=== PATIENT | female | born 1995 | race Caucasian/White ===

== ENCOUNTER 2020-11-22 17:40 | Observation (INO) | payer MEDICAID, OTHER ==
[2020-11-22] MEDS ORDERED: Sodium Chloride 0.9% 1,000 ML IV ONE (17:42)
[2020-11-22] MEDS ORDERED: Ondansetron 4 MG/2 ML SDV IVPUSH PRN ×2 (17:43→20:05)
[2020-11-22 18:08] LABS: CHLORIDE,CL 102 mEq/L (98-106); SODIUM,NA 138 mEq/L (136-145)
--- NOTE | 2020-11-22 18:13 | EDM.PDOC ---
ED HPI GENERAL MEDICAL PROBLEM - General Chief Complaint: General Stated Complaint: nausea Time Seen by Provider: 11/22/20 17:55 Source of Information: Reports: Patient History Limitations: Reports: No Limitations - History of Present Illness INITIAL COMMENTS - FREE TEXT/NARRATIVE: This is 19 week pg Mom with twins who has been vomiting for several hours. She did call her OB in [place] and they told her to go to ER for eval to prevent dehydration. She states the daycare that her daughter attends has flu. She has vomited once since being here and has had 1 diarrhea stool since being here. She states that she has not been able to keep anything down all day although she does continue to sip on gatorade to try. No fever with it. Onset: Today Location: Reports: Abdomen Associated Symptoms: Reports: Nausea/Vomiting - Related Data Allergies Allergy/AdvReac Type Severity Reaction Status Date / Time amoxicillin Allergy Rash Verified 11/22/20 18:04 azithromycin [From Zithromax] Allergy Edema Verified 11/22/20 18:04 Home Meds: Home Meds Aspirin [Aspirin EC] 81 mg PO DAILY 11/22/20 [History] Vits #93/Iron Fum/FA [ Formula Tablet] 1 tab PO DAILY 11/22/20 [History] Past Medical History - Past Health History Medical/Surgical History: Denies Medical/Surgical History - Past Surgical History HEENT Surgical History: Reports: Tonsillectomy GI Surgical History: Reports: Cholecystectomy Female Surgical History: Reports: Breast Reduction Social & Family History - Tobacco Use Tobacco Use Status *Q: Never Tobacco User ED ROS GENERAL - Review of Systems Review Of Systems: See Below Constitutional: Denies: Fever, Chills HEENT: Reports: No Symptoms Respiratory: Reports: No Symptoms Cardiovascular: Reports: No Symptoms GI/Abdominal: Reports: Diarrhea, Nausea, Vomiting. Denies: Abdominal Pain : Reports: No Symptoms ED EXAM, GENERAL - Physical Exam Exam: See Below Exam Limited By: No Limitations General Appearance: Alert, WD/WN, Mild Distress Respiratory/Chest: No Respiratory Distress, Lungs Clear, Normal Breath Sounds Cardiovascular: Normal Peripheral Pulses, Regular Rate, Rhythm, No Edema GI/Abdominal: Normal Bowel Sounds, Soft, Other (Gravid abdomen. baby heart rate on the rate is 155, baby heart rate on the left is 147. movement is felt by Mom.) Extremities: No Pedal Edema Neurological: Alert, Oriented Skin Exam: Warm Course - Vital Signs Last Recorded V/S: Last Vital Signs Temp 98 F 11/22/20 18:23 Pulse 115 H 11/22/20 18:23 Resp 18 11/22/20 18:23 BP 108/66 11/22/20 18:23 Pulse Ox 99 11/22/20 18:23 - Orders/Labs/Meds Orders: Active Orders 24 hr Category Date Time Status Ondansetron [Zofran] Med 11/22/20 17:43 Active 4 mg IVPUSH Q6H PRN Ondansetron [Zofran] Med 11/22/20 20:05 Ordered 4 mg IVPUSH Q6H PRN Sodium Chloride 0.9% [Normal Saline] 1,000 ml Med 11/22/20 19:15 Active IV ASDIRECTED Medication Orders Sodium Chloride (Normal Saline) 1,000 mls @ 999 mls/hr IV ASDIRECTED RAFAEL Stop: 11/26/20 19:04 Last Admin: 11/22/20 19:15 Dose: 999 mls/hr Documented by: JAY Ondansetron HCl (Ondansetron 4 Mg/2 Ml Sdv) 4 mg IVPUSH Q6H PRN PRN Reason: Nausea/Vomiting Last Admin: 11/22/20 18:02 Dose: 4 mg Documented by: GOLD Labs: Laboratory Tests 11/22/20 11/22/20 11/22/20 Range/Units 17:58 17:58 18:05 WBC 19.4 H (5.0-10.0) 10^3/uL RBC 4.16 (4.00-5.50) 10^6/uL Hgb 12.6 (12.0-16.0) g/dL Hct 37.1 (37.0-47.0) % MCV 89.2 (82.0-94.0) fL MCH 30.3 (27.0-32.0) pg MCHC 34.0 (33.0-38.0) g/dL RDW Coeff of Estuardo 13.6 (11.0-15.0) % Plt Count 265 (150-400) 10^3/uL Add Manual Diff Yes Neutrophils % (Manual) 82 (35-85) % Lymphocytes % (Manual) 11 L (21-55) % Monocytes % (Manual) 7 (2-12) % Absolute Neutrophils 15.91 H (1.80-7.00) 10^3/uL Lymphocytes # (Manual) 2.13 (1.00-4.80) 10^3/uL Monocytes # (Manual) 1.36 H (0.00-0.80) 10^3/uL Sodium 138 (136-145) mEq/L Potassium 3.7 (3.5-5.0) mEq/L Chloride 102 (98-106) mEq/L Carbon Dioxide 24 (21-32) mmol/L BUN 14 (7-18) mg/dL Creatinine 0.7 (0.6-1.0) mg/dL Est Cr Clr Drug Dosing TNP Estimated GFR (MDRD) > 60 (>=60) mL/min Glucose 108 H (75-99) mg/dL Calcium 9.3 (8.4-10.1) mg/dL Urine Color Yellow (YELLOW) Urine Appearance Slightly cloudy (CLEAR) Urine pH 5.5 (4.5-8.0) Ur Specific Roann >= 1.030 H (1.003-1.020) Urine Protein 100 H (NEGATIVE) mg/dL Urine Glucose (UA) Negative (NEGATIVE) mg/dL Urine Ketones Trace H (NEGATIVE) mg/dL Urine Occult Blood Trace-intact H (NEGATIVE) Urine Nitrite Negative (NEGATIVE) Urine Bilirubin Negative (NEGATIVE) Urine Urobilinogen 0.2 (0.2-1.0) EU/dL Ur Leukocyte Esterase Small H (NEGATIVE) U Hyaline Cast (Auto) Credit Collections Analyst Urine RBC 0-5 (0-5) /HPF Urine WBC 5-10 H (0-5) /HPF Ur Squamous Epith Cells Many H (NOT SEEN) /HPF Urine Bacteria Moderate H (NOT SEEN) /HPF Urinalysis Comment Meds: Medications Generic Name Dose Route Start Last Admin Trade Name Freq PRN Reason Stop Dose Admin Sodium Chloride 1,000 mls @ 999 mls/hr 11/22/20 19:15 11/22/20 19:15 Normal Saline IV 11/26/20 19:04 999 mls/hr ASDIRECTED RAFAEL Administration Ondansetron HCl 4 mg 11/22/20 17:43 11/22/20 18:02 Ondansetron 4 Mg/2 Ml Sdv IVPUSH 4 mg Q6H PRN Administration Nausea/Vomiting Discontinued Medications Generic Name Dose Route Start Last Admin Trade Name Jf PRN Reason Stop Dose Admin Sodium Chloride 1,000 mls @ 999 mls/hr 11/22/20 17:42 11/22/20 18:02 Normal Saline IV 11/22/20 18:42 999 mls/hr .BOLUS ONE Administration Ondansetron HCl 2 packet 11/22/20 18:44 11/22/20 19:04 Take Home: Ondansetron 4 Mg Tab.Dis, 2 Tab Pack PO 11/22/20 18:45 Not Given ONETIME ONE Ondansetron HCl 4 mg 11/22/20 20:05 Ondansetron 4 Mg/2 Ml Sdv IVPUSH 11/22/20 20:06 Q6H ONE - Re-Assessments/Exams Free Text/Narrative Re-Assessment/Exam: 11/22/20 18:30 She states that she is less nauseated after the zofran was given about 30 minutes ago. IV fluids are infusing as her spec grav is >1030 on arrival. Encouraged to sip on ice water or ice cubes. 11/22/20 19:40 Has not urinated at this time and has had 1 liter of fluids. Will give 2nd liter to ensure that she is hydrated before discharge. Departure - Departure Time of Disposition: 20:07 Disposition: Refer to Observation Condition: Good Clinical Impression: Gastroenteritis Qualifiers: Weeks of gestation: 19 weeks Qualified Code(s): Z3A.19 - 19 weeks gestation of Clinical Impression: (Ruled Out): greater than 20 weeks gestation - Discharge Information *PRESCRIPTION DRUG MONITORING PROGRAM REVIEWED*: Not Applicable *COPY OF PRESCRIPTION DRUG MONITORING REPORT IN PATIENT ROXANA: Not Applicable Referrals: PCP,Unknown [Primary Care Provider] - Forms: ED Department Discharge Sepsis Event Note (ED) - Focused Exam Vital Signs: Vital Signs Temp Pulse Resp BP Pulse Ox 11/22/20 18:23 98 F 115 H 18 108/66 99 - Problem List & Annotations (1) Gastroenteritis SNOMED Code(s): 64658110 Code(s): K52.9 - NONINFECTIVE GASTROENTERITIS AND COLITIS, UNSPECIFIED Status: Acute Priority: High Current Visit: Yes (2) SNOMED Code(s): 38516303 Code(s): Z34.90 - ENCNTR FOR SUPRVSN OF NORMAL , UNSP, UNSP TRIMESTER Status: Acute Priority: High Current Visit: Yes Qualifiers: Weeks of gestation: 19 weeks Qualified Code(s): Z3A.19 - 19 weeks gestation of - Problem List Review Problem List Initiated/Reviewed/Updated: Yes - My Orders Last 24 Hours: My Active Orders 11/22/20 17:43 Ondansetron [Zofran] 4 mg IVPUSH Q6H PRN 11/22/20 19:15 Sodium Chloride 0.9% [Normal Saline] 1,000 ml IV ASDIRECTED 11/22/20 20:05 Ondansetron [Zofran] 4 mg IVPUSH Q6H PRN - Assessment/Plan Admission H&P: Please use this note as an admission H&P Last 24 Hours: My Active Orders 11/22/20 17:43 Ondansetron [Zofran] 4 mg IVPUSH Q6H PRN 11/22/20 19:15 Sodium Chloride 0.9% [Normal Saline] 1,000 ml IV ASDIRECTED 11/22/20 20:05 Ondansetron [Zofran] 4 mg IVPUSH Q6H PRN Plan: Pt continues to vomit 2 hours after her zofran. Has not been able to take in much for fluids other than a few sips. No further diarrhea at the time of admission. Will admit to observation with fluids and nausea control. She has urinated once since being here.
[2020-11-22] MEDS ORDERED: Take Home: Ondansetron 4 MG Tab.DIS, 2 Tab Pack PO ONE (18:44)
[2020-11-22] MEDS ORDERED: Sodium Chloride 0.9% 1,000 ML IV SCH (19:15)
[2020-11-22] MEDS ORDERED: Ondansetron 4 MG/2 ML SDV IVPUSH ONE (20:05)
[2020-11-22] MEDS ORDERED: Acetaminophen 325 MG Tab PO PRN (20:35)
[2020-11-22] MEDS ORDERED: Prochlorperazine 10 MG Tab PO PRN (21:06)
[2020-11-22] MEDS ORDERED: Metoclopramide 10 MG/2 ML SDV IVPUSH PRN (21:10)
[2020-11-22] MEDS ORDERED: diphenhydrAMINE 50 MG/ML SDV IVPUSH PRN (21:11)
[2020-11-22] MEDS: Sodium Chloride 0.9% 1,000 ML IV SCH (21:30)
[2020-11-23] MEDS: Sodium Chloride 0.9% 1,000 ML IV SCH ×3 (03:55→06:01)
[2020-11-23 07:30] LABS: CHLORIDE,CL 109 mEq/L (98-106); SODIUM,NA 139 mEq/L (136-145)
[2020-11-23] MEDS ORDERED: Aspirin 81 MG Tab.EC PO SCH (08:00)
[2020-11-23] MEDS ORDERED: Non-Formulary Medication 1 Each (Prenatal Vits #93/Iron Fum/Fa [Prenatal Formula Tablet] 1 PO SCH (08:00)
[2020-11-23] MEDS ORDERED: Magnesium Sulfate (4.06 MEQ/ML) 1 GM/2 ML SDV IM ONE (09:18)
--- NOTE | 2020-11-25 23:58 | PCM.DCSUM1 ---
Discharge Summary - Hospital Course HPI Initial Comments: Melia is a 25 yo female who was admitted to the hospital yesterday with nausea, vomiting and diarrhea. Patient is 19 weeks with twins. She called her OB doctor in [place] and was told to go to the closest ED for possible hydration. Symptoms had been present the last day and she admits her daughter's daycare had the stomach flu going around. She wasn't able to keep anything down all day and had been trying to hydrate with Gatorade and water taking small sips. Patient denied any abdominal pain on admission. - Discharge Data Discharge Date: 11/23/20 Discharge Disposition: Home, Self-Care 01 Condition: Good - Referral to Home Health Primary Care Physician: PCP Unknown - Discharge Diagnosis/Problem(s) (1) Hypokalemia SNOMED Code(s): 24893854 ICD Code: E87.6 - HYPOKALEMIA Status: Acute (2) Hypomagnesemia SNOMED Code(s): 562218480 ICD Code: E83.42 - HYPOMAGNESEMIA Status: Acute (3) Gastroenteritis SNOMED Code(s): 17695506 ICD Code: K52.9 - NONINFECTIVE GASTROENTERITIS AND COLITIS, UNSPECIFIED Status: Acute Priority: High (4) SNOMED Code(s): 71771041 ICD Code: Z34.90 - ENCNTR FOR SUPRVSN OF NORMAL , UNSP, UNSP TRIMESTER Status: Acute Priority: High Qualifiers: Weeks of gestation: 19 weeks Qualified Code(s): Z3A.19 - 19 weeks gestation of - Patient Instructions Diet: GI Soft/Low Residue/Low Fiber Activity: As Tolerated Notify Provider of: Fever, Increased Pain, Nausea and/or Vomiting - Discharge Plan *PRESCRIPTION DRUG MONITORING PROGRAM REVIEWED*: Not Applicable *COPY OF PRESCRIPTION DRUG MONITORING REPORT IN PATIENT ROXANA: Not Applicable Prescriptions/Med Rec: Potassium Chloride 10 meq PO DAILY #7 tablet.er Magnesium Chloride [Slow-Mag] 1 tab PO DAILY #14 tablet.dr Marion Medications: Home Meds Aspirin [Aspirin EC] 81 mg PO DAILY 11/22/20 [History] Vits #93/Iron Fum/FA [ Formula Tablet] 1 tab PO DAILY 11/22/20 [History] Acetaminophen [Tylenol] 650 mg PO Q4H PRN tablet 11/23/20 [Rx] Magnesium Chloride [Slow-Mag] 1 tab PO DAILY #14 tablet. 11/23/20 [Rx] Potassium Chloride 10 meq PO DAILY #7 tablet.er 11/23/20 [Rx] Oxygen Therapy Mode: Room Air Forms: ED Department Discharge Referrals: Janice Castrejon MD [Ordering Only Provider] - (Next week will likely need BMP and Magnesium checked.) - Discharge Summary/Plan Comment DC Time >30 min.: Yes Discharge Summary/Plan Comment: Reviewed laboratory work from yesterday and today. Potassium is slightly low today and did get a magnesium, which was low as well. Consulted with Dr. alexis and proceeded to correct magnesium, 2 grams given IM. Patient to be discharged home with potassium and magnesium supplementation. Patient is to follow up with Dr. Castrejon next week. Advise continuing with Brat diet and increasing fluid intake. If any symptoms worsen, new onset of symptoms or any concerns, patient is to return sooner. - General Info Date of Service: 11/23/20 Subjective Update: Melia states she is feeling a lot better today. Admits she is able to keep fluids and soft foods down. States she continues to have diarrhea but has improved as well. Denies any concerns today. States she is ready to go home at this time. Functional Status: Reports: Tolerating Diet, Ambulating, Urinating. Denies: New Symptoms - Review of Systems General: Denies: Fever HEENT: Reports: No Symptoms Pulmonary: Reports: No Symptoms Cardiovascular: Reports: No Symptoms Gastrointestinal: Reports: Decreased Appetite, Diarrhea. Denies: Abdominal Pain, Nausea, Vomiting Genitourinary: Reports: No Symptoms Skin: Reports: No Symptoms Neurological: Reports: No Symptoms Psychiatric: Reports: No Symptoms - Patient Data Vitals - Most Recent: Last Vital Signs Temp 99.4 F 11/23/20 08:00 Pulse 121 H 11/23/20 08:00 Resp 18 11/23/20 08:00 BP 100/40 L 11/23/20 08:00 Pulse Ox 97 11/23/20 08:00 Weight - Most Recent: 176 lb 4.8 oz Med Orders - Current: Current Medications Discontinued Medications Acetaminophen (Acetaminophen 325 Mg Tab) 650 mg PO Q4H PRN PRN Reason: Pain (Mild 1-3)/fever Aspirin (Aspirin 81 Mg Tab.Ec) 81 mg PO DAILY RAFAEL Last Admin: 11/23/20 09:56 Dose: 81 mg Documented by: Diphenhydramine HCl (Diphenhydramine 50 Mg/Ml Sdv) 25 mg IVPUSH Q6H PRN PRN Reason: Nausea/Vomiting Sodium Chloride (Normal Saline) 1,000 mls @ 999 mls/hr IV .BOLUS ONE Stop: 11/22/20 18:42 Last Admin: 11/22/20 18:02 Dose: 999 mls/hr Documented by: Sodium Chloride (Normal Saline) 1,000 mls @ 999 mls/hr IV ASDIRECTED [facility] Stop: 11/26/20 19:04 Last Admin: 11/22/20 19:15 Dose: 999 mls/hr Documented by: Sodium Chloride (Normal Saline) 1,000 mls @ 150 mls/hr IV ASDIRECTED [facility] Last Admin: 11/23/20 06:01 Dose: 500 mls/hr Documented by: Magnesium Sulfate (Magnesium Sulfate (4.06 Meq/Ml) 1 Gm/2 Ml Sdv) 2 gm IM ONETIME ONE Stop: 11/23/20 09:19 Last Admin: 11/23/20 09:56 Dose: 2 gm Documented by: Metoclopramide HCl (Metoclopramide 10 Mg/2 Ml Sdv) 10 mg IVPUSH Q6H PRN PRN Reason: Nausea/Vomiting Last Admin: 11/22/20 21:31 Dose: 10 mg Documented by: Non-Formulary Medication ( Vits #93/Iron Fum/Fa [ Formula Tablet]) 1 tab PO DAILY [facility] Ondansetron HCl (Ondansetron 4 Mg/2 Ml Sdv) 4 mg IVPUSH Q6H PRN PRN Reason: Nausea/Vomiting Last Admin: 11/22/20 18:02 Dose: 4 mg Documented by: Ondansetron HCl (Take Home: Ondansetron 4 Mg Tab.Dis, 2 Tab Pack) 2 packet PO ONETIME ONE Stop: 11/22/20 18:45 Last Admin: 11/22/20 19:04 Dose: Not Given Documented by: Ondansetron HCl (Ondansetron 4 Mg/2 Ml Sdv) 4 mg IVPUSH Q6H ONE Stop: 11/22/20 20:06 Last Admin: 11/22/20 20:20 Dose: 4 mg Documented by: Ondansetron HCl (Ondansetron 4 Mg/2 Ml Sdv) 4 mg IVPUSH Q6H PRN PRN Reason: Nausea Prochlorperazine Maleate (Prochlorperazine 10 Mg Tab) 10 mg PO Q8H PRN PRN Reason: Nausea/Vomiting - Exam General: Reports: Alert, Oriented, Cooperative, No Acute Distress Lungs: Reports: Clear to Auscultation, Normal Respiratory Effort Cardiovascular: Reports: Regular Rate, Regular Rhythm GI/Abdominal Exam: Soft, Non-Tender, No Organomegaly, No Distention, Other (Gravid) Skin: Reports: Warm, Dry, Intact Psy/Mental Status: Reports: Alert, Normal Affect, Normal Mood
== END 2020-11-23 10:51 | disposition home or self-care (01) ==
LOC: CC.ED 17:40 → UNDOADMOB 20:00 → CC.MS 20:00 → CC.ED 20:06 → CC.MS 20:35
PROVIDERS: ADMIT Physician Assistant Medical; ATTEND Family Medicine
DX: O99.612 Diseases of the digestive system complicating pregnancy, second trimester (principal); K52.9 Noninfective gastroenteritis and colitis, unspecified; E87.6 Hypokalemia; E83.42 Hypomagnesemia; R11.2 Nausea with vomiting, unspecified; Z88.1 Allergy status to other antibiotic agents; Z79.82 Long term (current) use of aspirin; Z98.890 Other specified postprocedural states; Z90.49 Acquired absence of other specified parts of digestive tract; Z3A.19 19 weeks gestation of pregnancy
CPT/HCPCS: 36415; 80048; 80053; 81001; 83735; 85025; 96372; 96374; 96375; 96376; 99284-25; A9270-GY; G0378; J2405; J2765; J3475; J7030

== ENCOUNTER 2022-05-11 22:50 | Emergency (ER) | payer OTHER ==
[2022-05-11] MEDS: Acetaminophen/HYDROcodone 325-5 MG Tab PO ONE (23:03)
[2022-05-11] MEDS: Take Home: Doxycycline 100 MG Tab, 4 Tab Pack PO ONE (23:39)
[2022-05-11] MEDS: Take Home: Ketorolac 10 MG Tab, 4 Tab Pack PO ONE (23:40)
== END 2022-05-11 23:42 | disposition home or self-care (01) ==
LOC: CC.ED 22:50
DX: J01.00 Acute maxillary sinusitis, unspecified (principal); H73.011 Bullous myringitis, right ear; Z88.1 Allergy status to other antibiotic agents; Z79.899 Other long term (current) drug therapy; Z90.49 Acquired absence of other specified parts of digestive tract
CPT/HCPCS: 99282; 99284; A9270-GY

== ENCOUNTER 2023-11-14 14:09 | Emergency (ER) | payer OTHER ==
[2023-11-14] MEDS: Clindamycin HCl 150 MG Cap PO ONE (14:22)
[2023-11-14] MEDS: Take Home: Clindamycin HCl 150 MG Cap, 6 Cap Pack PO ONE (14:24)
== END 2023-11-14 14:31 | disposition home or self-care (01) ==
LOC: CC.ED 14:09
DX: L03.211 Cellulitis of face (principal); L02.01 Cutaneous abscess of face; L70.0 Acne vulgaris; Z90.49 Acquired absence of other specified parts of digestive tract; Z88.0 Allergy status to penicillin
CPT/HCPCS: 99283; A9270-GY